=== PATIENT | male | born 1970 | race Caucasian/White ===

== ENCOUNTER 2023-10-16 14:13 | Outpatient (OUT) | payer OTHER, SELFPAY ==
--- NOTE | 2023-10-16 14:17 | US_ITS ---
The [address] [address] Patient Name: COREY CLARKE MRN: [id number] date: 1970 Sex: M Assigned Patient Location: US Current Patient Location: Accession/Order Number: [id number] Exam Date: 10/16/2023 14:30 Report Date: 10/18/2023 07:52 At the request of: SHAE GE Procedure: US extremity nonvascular LT EXAMINATION: US extremity nonvascular LT HISTORY: Left Upper Extremity Mass, History Thyroid Cancer COMPARISON: No relevant comparison available. FINDINGS: Identified along the left upper arm correspond to the patient's palpable abnormality is a 2.4 x 1.9 x 1.0 cm area of hyperechogenicity. This lesion is partially circumscribed and just below the dermis superficial to muscle US/US extremity nonvascular LT IMPRESSION: 2.4 cm hyperechogenic mass corresponding to patient's palpable abnormality. A lipoma is statistically favored Electronically authenticated by: SHANIQUE MICHAELS Date: 10/18/2023 07:52
== END 2023-10-16 14:14 | disposition home or self-care (01) ==
LOC: US 14:13
PROVIDERS: PCP Family Medicine; Visit Provider Radiology Radiation Oncology
DX: R22.32 Localized swelling, mass and lump, left upper limb (principal); Z85.850 Personal history of malignant neoplasm of thyroid
CPT/HCPCS: 76882

== ENCOUNTER 2024-04-10 10:37 | Outpatient (OUT) | payer OTHER, SELFPAY ==
--- NOTE | 2024-04-10 10:44 | US_ITS ---
The [address] [address] Patient Name: COREY CLARKE MRN: [id number] date: 1970 Sex: M Assigned Patient Location: US Current Patient Location: US Accession/Order Number: [id number] Exam Date: 04/10/2024 10:45 Report Date: 04/12/2024 17:00 At the request of: SHEA GE Procedure: US extremity nonvascular LT PROCEDURE: US extremity nonvascular LT, 04/10/2024 10:45 AM EDT CLINICAL INDICATIONS: Personal history of thyroid cancer, palpable left upper extremity mass. COMPARISON: 10/16/2023. TECHNIQUE: Limited sonogram, grayscale, color assessment. FINDINGS: Relative echogenic solid abnormality identified within the subcutaneous tissues of the left upper extremity at the level of clinical concern. This measures up to 2.2 x 2.1 x 1.0 cm where it previously 2.4 x 1.9 x 1.0 cm. No internal vascularity noted. Mild enhanced posterior features seen. US/US extremity nonvascular LT IMPRESSION: 2.2 cm echogenic solid subcutaneous mass left upper extremity where previously 2.4 cm. Lipoma favored in the appropriate clinical setting. Electronically authenticated by: DIANA TYLER Date: 04/12/2024 17:00
== END 2024-04-10 10:38 | disposition home or self-care (01) ==
LOC: US 10:38
PROVIDERS: PCP Family Medicine; Visit Provider Radiology Radiation Oncology
DX: R22.32 Localized swelling, mass and lump, left upper limb (principal); Z85.850 Personal history of malignant neoplasm of thyroid
CPT/HCPCS: 76882